=== PATIENT | female | born 1935 | race African-American/Black ===

== ENCOUNTER 2018-03-25 09:32 | Outpatient (CLI) | payer MEDICARE, MEDICAID | END 2018-03-25 09:33 | disposition home or self-care (01) | LOC: BICULT 09:32 | PROVIDERS: ATTEND Internal Medicine Nephrology | DX: Z01.818 Encounter for other preprocedural examination (principal) | CPT/HCPCS: 93970; G0365 ==

== ENCOUNTER 2018-05-20 09:54 | Day surgery (SDC) | payer MEDICARE, MEDICAID ==
[2018-05-19 09:40] VITALS: BMI 25.0
[2018-05-20] MEDS ORDERED: CEFAZOLIN/Water 2 GM/20 ML SYRINGE ONE (10:20)
[2018-05-20 10:38] LABS: #Eosinphils 0.1 thou/uL (0.0-0.7); #Lymphocytes 1.4 thou/uL (1.20-3.40); #Monocytes 0.7 thou/uL (0.11-0.59); #Neutrophils 4.1 thou/uL (1.40-6.50); %Basophils 0.4 % (0.0-1.0); %Eosinophils 1.9 % (0.0-10.0); %Lymphocytes 22.6 % (21.0-51.0); %Monocytes 10.8 % (0.0-10.0); %Neutrophils 64.2 % (42.0-75.0); Mean Corpuscular HGB CONC 31.4 g/dL (32.0-36.0); Mean Corpuscular Hemoglobin 30.1 pg (27.0-31.0); Mean Corpuscular Volume 95.9 fL (78.0-98.0); Mean Platelet Volume 8.2 fL (7.4-10.4); Platelet Count 178 thou/uL (130-400); RBC Distribution Width 15.5 % (11.5-14.5); Red Blood Cell (RBC) Count 3.98 mill/uL (4.20-5.40); White Blood Cell (WBC) Count 6.4 thou/uL (4.8-10.8)
[2018-05-20 11:02] LABS: Anion Gap 12 mmol/L (10-20); BUN (Urea Nitrogen) 27 mg/dL (9.8-20.1); Calc. Creatinine Clearance 11 mL/min (70-130); Calcium 9.1 mg/dL (7.8-10.44); Carbon Dioxide 28 mmol/L (23-31); Chloride 100 mmol/L (98-107); Estimated GFR-MDRD 13; Glucose 91 mg/dL (83-110); Potassium 3.6 mmol/L (3.5-5.1); Sodium 136 mmol/L (136-145)
[2018-05-20] MEDS ORDERED: Fentanyl 100 MCG/2 ML VIAL ONE ×2 (11:25→11:54)
[2018-05-20] MEDS ORDERED: Lidocaine 1% (PF) 30 ML VIAL ONE (11:29)
[2018-05-20] MEDS ORDERED: Bupivacaine/Epinephrine 0.25% 30 ML VIAL ONE (11:47)
[2018-05-20] MEDS ORDERED: Lidocaine 2% PF Inj 2 ML VIAL ONE (11:47)
[2018-05-20] MEDS ORDERED: Ioversol 68 % 50 ML VIAL ONE (11:47)
[2018-05-20] MEDS ORDERED: Protamine Sulfate 50 MG/5 ML VIAL ONE (11:47)
[2018-05-20] MEDS ORDERED: Heparin 5,000 UNITS/ML VIAL ONE (11:47)
[2018-05-20] MEDS ORDERED: Heparin 10,000 UNITS/1 ML VIAL ONE (11:47)
[2018-05-20] MEDS ORDERED: Bupivacaine HCl 0.5%/Epinephrine 1:200,000/PF 30 ml Vial ONE (12:54)
[2018-05-20] MEDS ORDERED: PROPOFOL 200 MG/20 ML VIAL ONE (14:23)
[2018-05-20] MEDS ORDERED: Dexamethasone 20 MG/5 ML VIAL ONE (14:23)
[2018-05-20] MEDS ORDERED: Heparin 10,000 UNITS/ 10 ML VIAL ONE ×2 (14:23→14:54)
[2018-05-20] MEDS ORDERED: Ondansetron HCl/PF 4 MG/2 ML Vial ONE (14:23)
--- NOTE | 2018-05-27 18:38 | PDOC.OP ---
Operative Note - Operative Note Operative Note: PROCEDURE: Right Karen AV fistula SURGEON: Ernestina Romero M.D. DATE OF PROCEDURE: 05/20/28 PREOPERATIVE DIAGNOSIS: Renal failure POSTOPERATIVE DIAGNOSIS: Renal failure HISTORY: Patient with end-stage renal failure on dialysis. Her left upper arm AV fistula has failed to develop so a right AV fistula was recommended. PROCEDURE IN DETAIL: After informed consent was obtained and appropriate preoperative antibiotics administered, the patient was taken to the operating room and placed in the supine position and monitored anesthesia care was administered. A preoperative block had been performed by Anesthesia and the adequacy of block was confirmed. The arm was prepped and draped in a standard sterile fashion and an incision made between the palpable cephalic vein and radial artery. Dissection was carried out to the cephalic vein, which appeared to be of adequate quality and caliber to support a fistula. This was dissected free circumferentially, ligated, and divided distally, and spatulated with Nesbitt scissors. This was serially interrogated with cardiac dilators and easily accepted up to a 3.5 mm cardiac dilator. This was flushed with heparinized saline and clamped with a bulldog clamp. The radial artery was then dissected free and found to be of adequate quality and caliber to support a fistula. Heparin was administered systemically and allowed to circulate for 3 minutes following which the radial artery was clamped proximally and distally. An anterior arteriotomy was created with an 11 blade scalpel and extended with Nesbitt scissors. An end-to-side anastomosis created with a running 6-0 Prolene suture with excellent technical result. Prior to tying down the anastomosis, the inflow was released to flush the anastomosis. Flow was established first through the fistula and then through the distal radial artery. Hemostasis at the site was confirmed, and an excellent thrill was felt in the cephalic vein outflow and an excellent bruit was heard with Doppler as well up to the proximal forearm. Hemostasis at the operative site was again confirmed. The incision was closed with a running 3-0 subcutaneous and running 4 -0 subcuticular Monocryl sutures. Dermabond dressings were placed and the patient was taken to the recovery room in good condition. Estimated blood loss was minimal. There were no complications. There were no specimens.
== END 2018-05-20 15:45 | disposition home or self-care (01) ==
LOC: SDC 09:54
PROVIDERS: ATTEND Surgery
PROC: 031B0ZF Bypass Right Radial Artery to Lower Arm Vein, Open Approach (ICD-10-PCS; principal; 2018-05-20)
DX: T82.898A Other specified complication of vascular prosthetic devices, implants and grafts, initial encounter (principal); I12.0 Hypertensive chronic kidney disease with stage 5 chronic kidney disease or end stage renal disease; E11.22 Type 2 diabetes mellitus with diabetic chronic kidney disease; N18.6 End stage renal disease; J45.909 Unspecified asthma, uncomplicated; Z79.82 Long term (current) use of aspirin; Z79.899 Other long term (current) drug therapy; Z99.2 Dependence on renal dialysis; Z98.890 Other specified postprocedural states
CPT/HCPCS: 80048; 85025; J0670; J1100; J1644; J2001; J2405; J2704; J2720; J3010; Q9967

== ENCOUNTER 2018-05-28 06:36 | Day surgery (SDC) | payer MEDICARE, MEDICAID ==
[2018-05-27 13:32] VITALS: BMI 25.0
[2018-05-28 15:17] VITALS: BP 186/74; TEMP 98.4
--- NOTE | 2018-05-28 16:04 | SPC ---
PROCEDURE RIGHT UPPER EXTREMITY DIALYSIS FISTULOGRAM: Two sonographic-guided vascular chesses. HISTORY: For function of new right upper extremity dialysis fistula. FLUORO TIME: 6.6 minutes. FINDINGS: After explaining the procedure and answering all questions, the right upper extremity was prepped and draped in the usual sterile fashion. Preprocedure sonographic evaluation shows the cephalic and bas ilic veins of the forearm to be very small. A noncompressible structure extending from the arterial anastomosis at the right wrist extends towards the cephalic outflow of the forearm. Sterile technique, buffered local anesthesia, sonographic guidance, and a 22-gauge needle were used t o carefully access the peripheral portion of the right forearm cephalic dialysis fistula. A 4 Romansh was placed for imaging, showing a very small antecubital vein with occasional collaterals. Dominant venous outflow is via a small basilic vein of the upper arm which his widely patent. Superior vena cava is patent. Attempt at reflux angiogram shows the cephalic vein to the level of distal radial sh aft, with contrast then extending through collaterals. Arterial inflow was not visualized. A second vascular access was obtained with sonographic guidance near the level of the antecubital fos opal within the antecubital vein, directed towards the arterial inflow. Great care was taken to caref ully advance a 0.035 Guidewire to the more peripheral cephalic vein in an attempt to visualize the ar terial inflow. A 4 Romansh catheter was carefully placed for imaging. Multiple venous branches were explored. The entirety of the cephalic vein was visualized. No arterial inflow was ever seen. The surgical arteriovenous anastomosis was not well visualized. The catheters an sheaths were removed and hemostasis obtained using direct pressure. The patient bree erated the procedure well and was eventually dismissed in good condition. IMPRESSION: 1. Very small caliber of venous structures throughout the right arm. No significant arterial inflow of the fistula at the right wrist was seen. The surgical anastomosis was unable to be found during catheterization and angiography. Please consider surgical consultation. POS: SUNIL
== END 2018-05-28 10:00 | disposition home or self-care (01) ==
LOC: SPEC 06:36
PROVIDERS: ATTEND Internal Medicine Nephrology
PROC: B51W1ZZ Fluoroscopy of Dialysis Shunt/Fistula using Low Osmolar Contrast (ICD-10-PCS; principal; 2018-05-28)
DX: T82.9XXA Unspecified complication of cardiac and vascular prosthetic device, implant and graft, initial encounter (principal); I12.0 Hypertensive chronic kidney disease with stage 5 chronic kidney disease or end stage renal disease; E11.22 Type 2 diabetes mellitus with diabetic chronic kidney disease; N18.6 End stage renal disease; K21.9 Gastro-esophageal reflux disease without esophagitis; Z99.2 Dependence on renal dialysis; Z79.82 Long term (current) use of aspirin; Z79.899 Other long term (current) drug therapy
CPT/HCPCS: 36901; C1769; C1887

== ENCOUNTER 2018-12-31 06:27 | Day surgery (SDC) | payer MEDICARE, MEDICAID ==
[2018-12-30 12:28] VITALS: BMI 25.0
[2018-12-31 07:03] LABS: #Eosinphils 0.2 thou/uL (0.0-0.7); #Lymphocytes 1.4 thou/uL (1.20-3.40); #Monocytes 0.7 thou/uL (0.11-0.59); #Neutrophils 4.9 thou/uL (1.40-6.50); %Basophils 0.4 % (0.0-1.0); %Eosinophils 2.3 % (0.0-10.0); %Lymphocytes 19.3 % (21.0-51.0); %Monocytes 10.2 % (0.0-10.0); %Neutrophils 67.9 % (42.0-75.0); Hemoglobin 10.9 g/dL (12.0-16.0); Mean Corpuscular HGB CONC 32.6 g/dL (32.0-36.0); Mean Corpuscular Hemoglobin 30.6 pg (27.0-31.0); Mean Corpuscular Volume 93.6 fL (78.0-98.0); Mean Platelet Volume 8.8 fL (7.4-10.4); Platelet Count 201 thou/uL (130-400); RBC Distribution Width 15.3 % (11.5-14.5); Red Blood Cell (RBC) Count 3.56 mill/uL (4.20-5.40); White Blood Cell (WBC) Count 7.2 thou/uL (4.8-10.8)
[2018-12-31] MEDS ORDERED: Fentanyl 100 MCG/2 ML VIAL ONE (07:15)
[2018-12-31] MEDS ORDERED: Propofol 500 MG/50 ML VIAL ONE (07:20)
[2018-12-31 07:23] LABS: Anion Gap 11 mmol/L (10-20); BUN (Urea Nitrogen) 24 mg/dL (9.8-20.1); Calc. Creatinine Clearance 13 mL/min (70-130); Calcium 10.3 mg/dL (7.8-10.44); Carbon Dioxide 30 mmol/L (23-31); Chloride 97 mmol/L (98-107); Estimated GFR-MDRD 17; Glucose 95 mg/dL (83-110); Potassium 3.7 mmol/L (3.5-5.1); Sodium 134 mmol/L (136-145)
[2018-12-31] MEDS ORDERED: Protamine Sulfate 50 MG/5 ML VIAL ONE (07:28)
[2018-12-31] MEDS ORDERED: Bupivacaine/Epinephrine 0.25% 30 ML VIAL ONE (07:28)
[2018-12-31] MEDS ORDERED: Lidocaine 2% PF 5 ML VIAL ONE (07:28)
[2018-12-31] MEDS ORDERED: Heparin 5,000 UNITS/ML VIAL ONE (07:28)
[2018-12-31] MEDS ORDERED: Piperacillin/Tazobactam 3.375 GM VIAL ONE (09:03)
[2018-12-31] MEDS ORDERED: Bupivacaine HCl 0.5%/Epinephrine 1:200,000/PF 30 ml Vial ONE (10:11)
[2018-12-31] MEDS ORDERED: Lidocaine 1% PF 5 ML VIAL ONE (10:51)
[2018-12-31] MEDS ORDERED: PROPOFOL 200 MG/20 ML VIAL ONE (10:51)
[2018-12-31] MEDS ORDERED: Heparin 10,000 UNITS/ 10 ML VIAL ONE (11:09)
--- NOTE | 2019-01-01 10:00 | EKG ---
Test Reason : PREOP Blood Pressure : / mmHG Vent. Rate : 068 BPM Atrial Rate : 068 BPM P-R Int : 222 ms QRS Dur : 070 ms QT Int : 392 ms P-R-T Axes : 083 026 035 degrees QTc Int : 416 ms Sinus rhythm with 1st degree A-V block with Premature atrial complexes Otherwise normal ECG When compared with ECG of 31-JAN-2015 07:06, No significant change was found Confirmed by DR. Gale GAGE ([id number]) on 01/01/2019 10:00:08 AM Referred By: YAIMA Confirmed By:DR. Gale GAGE
--- NOTE | 2019-01-03 15:20 | OP ---
DATE OF PROCEDURE: 12/31/2018 PROCEDURE PERFORMED: Right radiocephalic AV fistula of the upper arm. PREOPERATIVE DIAGNOSIS: End-stage renal failure. POSTOPERATIVE DIAGNOSIS: End-stage renal failure. INDICATIONS FOR PROCEDURE: Ms. Lindo is an 83-year-old woman with end-stage renal failure, who needs permanent access. She has a tunneled catheter in place and a failed Karen fistula on the right. She has exhausted her access options on the left. Recommendation was made to proceed to the operating room for a right upper arm AV fistula versus graft. DESCRIPTION OF PROCEDURE: After informed consent was obtained and appropriate preoperative antibiotics were administered, the patient was taken to the operating room, where she was placed in supine position and monitored anesthesia care was administered. A block had been placed preoperatively and adequacy of the block was confirmed. The palpable forearm cephalic vein was marked on the skin as was the palpable brachial pulse. An incision was made over the forearm cephalic vein, which was dissected free circumferentially, this appeared to be of good caliber and quality and was ligated and divided distally leaving enough length to reach over to the brachial artery. The vein was spatulated and interrogated stenosis making it unable and unsuitable for use for fistula. Therefore, this was ligated and attention was turned to the antecubital area. Dissection was carried down toward the palpable brachial pulse, at which point, antecubital vein complex was identified. This appeared to have dual basilic and cephalic outflow and a large high school math teacher heading down towards the palpable pulse. The perforating vein was dissected free and ligated distally and divided. This was spatulated up to a 3.5 mm dilator. This did have dual outflow, but primarily cephalic outflow. . Job ID: [id number]
== END 2018-12-31 11:35 | disposition home or self-care (01) ==
LOC: SDC 06:27
PROVIDERS: ATTEND Surgery
PROC: 03170ZD Bypass Right Brachial Artery to Upper Arm Vein, Open Approach (ICD-10-PCS; principal; 2018-12-31)
DX: I12.0 Hypertensive chronic kidney disease with stage 5 chronic kidney disease or end stage renal disease (principal); E11.22 Type 2 diabetes mellitus with diabetic chronic kidney disease; N18.6 End stage renal disease; E78.5 Hyperlipidemia, unspecified; M19.90 Unspecified osteoarthritis, unspecified site; F17.290 Nicotine dependence, other tobacco product, uncomplicated; Z79.82 Long term (current) use of aspirin; Z79.899 Other long term (current) drug therapy; Z99.2 Dependence on renal dialysis
CPT/HCPCS: 80048; 85025; 93005; 93010; J0670; J0690; J1644; J2001; J2543; J2704; J2720; J3010

== ENCOUNTER 2019-04-27 08:54 | Day surgery (SDC) | payer MEDICARE, MEDICAID ==
[2019-04-27] MEDS ORDERED: Bupivacaine/Epinephrine 0.25% 30 ML VIAL ONE (09:38)
[2019-04-27] MEDS ORDERED: Lidocaine 2% PF 5 ML VIAL ONE (09:38)
[2019-04-27] MEDS ORDERED: Protamine Sulfate 50 MG/5 ML VIAL ONE (09:38)
[2019-04-27] MEDS ORDERED: Heparin 5,000 UNITS/ML VIAL ONE (09:38)
[2019-04-27] MEDS ORDERED: Midazolam HCl 2 mg/2 ml Vial ONE (10:02)
[2019-04-27] MEDS ORDERED: Fentanyl 100 MCG/2 ML VIAL ONE (10:02)
[2019-04-27 10:12] LABS: #Basophils 0.1 thou/uL (0.0-0.2); #Eosinphils 0.1 thou/uL (0.0-0.7); #Lymphocytes 1.3 thou/uL (1.20-3.40); #Monocytes 0.7 thou/uL (0.11-0.59); #Neutrophils 3.5 thou/uL (1.40-6.50); %Basophils 1.1 % (0.0-1.0); %Eosinophils 1.5 % (0.0-10.0); %Lymphocytes 22.6 % (21.0-51.0); %Monocytes 12.9 % (0.0-10.0); %Neutrophils 61.8 % (42.0-75.0); Hemoglobin 11.6 g/dL (12.0-16.0); Mean Corpuscular HGB CONC 32.7 g/dL (32.0-36.0); Mean Corpuscular Hemoglobin 31.7 pg (27.0-31.0); Mean Corpuscular Volume 96.9 fL (78.0-98.0); Mean Platelet Volume 9.2 fL (7.4-10.4); Platelet Count 135 thou/uL (130-400); RBC Distribution Width 14.8 % (11.5-14.5); Red Blood Cell (RBC) Count 3.66 mill/uL (4.20-5.40); White Blood Cell (WBC) Count 5.6 thou/uL (4.8-10.8)
[2019-04-27 10:35] LABS: Anion Gap 14 mmol/L (10-20); BUN (Urea Nitrogen) 28 mg/dL (9.8-20.1); Calc. Creatinine Clearance 0 mL/min (70-130); Carbon Dioxide 27 mmol/L (23-31); Chloride 97 mmol/L (98-107); Estimated GFR-MDRD 15; Glucose 100 mg/dL (83-110); Potassium 3.1 mmol/L (3.5-5.1); Sodium 135 mmol/L (136-145)
[2019-04-27] MEDS ORDERED: Bupivacaine HCl 0.5%/Epinephrine 1:200,000/PF 30 ml Vial ONE (12:06)
[2019-04-27] MEDS ORDERED: PROPOFOL 40 ML ONE (12:26)
[2019-04-27] MEDS ORDERED: Heparin 10,000 UNITS/ 10 ML VIAL ONE ×2 (12:52→14:44)
[2019-04-27] MEDS ORDERED: PROPOFOL 200 MG/20 ML VIAL ONE (12:52)
--- NOTE | 2019-04-30 10:53 | PDOC.OP ---
Operative Note - Operative Note Operative Note: DATE OF PROCEDURE: 04/27/2019 PROCEDURE: Right basilic vein transposition fistula. SURGEON: Ernestina Romero M.D. PREOPERATIVE DIAGNOSIS: End-stage renal failure. POSTOPERATIVE DIAGNOSIS: End-stage renal failure. HISTORY: Patient is a 84 year old woman with end-stage renal failure.She has a right upper arm basilic fistula which requires transposition to be accessible. DESCRIPTION OF PROCEDURE: After informed consent was obtained and appropriate neuromuscular blockade was administered, the patient was taken to the operating room and placed in supine position. The arm was prepped and draped in a standard sterile fashion and adequacy of block was confirmed. The distal basilic vein was dissected out to its confluence with the upper arm cephalic vein. The cephalic vein was found to be of inadequate caliber to support transposition. The basilic vein was then dissected free to the level of its confluence with the axillary vein, ligating side branches as they were encountered. The vein was marked for orientation, clamped and divided obliquely above the level of the confluence with the cephalic vein. The basilic vein was compressed at the level of the axilla and heparinized saline was instilled, distending the vein. The vein was checked for leaks and none were seen. The vein was then flushed with heparinized saline and a bulldog clamp placed at the level of the axilla. A 12 mm tunneler was obtained and brought up from the antecubital to the axillary area. The 12 mm tip was removed and a 6 mm tip placed and the basilic vein was secured to this. The basilic vein was drawn down through the subcutaneous tunnel being careful not to twist the vein. This was found easily to reach to the proximal basilic vein. Heparin was then administered systemically and allowed to circulate for 3 minutes. The proximal basilic vein was spatulated to create a wide anastomosis. An end-to-side anastomosis was created with a running 6-0 Prolene suture with excellent technical result. Prior to completing the anastomosis, the inflow was released, flushing the anastomosis. The anastomosis was then completed, all clamps were removed and hemostasis verified. There was an excellent thrill through the basilic fistula which was readily palpable beneath the skin. This was immediately medial to the cephalic vein which also had a palpable thrill but is significantly smaller in caliber. The decision was made to leave the cephalic vein in position, as a possible alternative access sites if the basilic vein thromboses. The inner arm wound was then irrigated and hemostasis obtained with Bovie electrocautery. The subcutaneous tissues were closed in two layers with 3-0 Monocryl suture following which the skin incision was closed with skin kristie. A surface wound VAC dressing was placed and the arm was wrapped with an Natalio wrap. The patient was taken to recovery in good condition. Estimated blood loss was minimal. There were no complications. There were no specimens.
== END 2019-04-27 15:15 | disposition home or self-care (01) ==
LOC: SDC 08:54
PROVIDERS: ATTEND Surgery
PROC: 05SB0ZZ Reposition Right Basilic Vein, Open Approach (ICD-10-PCS; principal; 2019-04-27)
DX: I12.0 Hypertensive chronic kidney disease with stage 5 chronic kidney disease or end stage renal disease (principal); E11.22 Type 2 diabetes mellitus with diabetic chronic kidney disease; N18.6 End stage renal disease; F17.290 Nicotine dependence, other tobacco product, uncomplicated; M16.10 Unilateral primary osteoarthritis, unspecified hip; M47.819 Spondylosis without myelopathy or radiculopathy, site unspecified; E78.5 Hyperlipidemia, unspecified; Z79.899 Other long term (current) drug therapy; Z99.2 Dependence on renal dialysis
CPT/HCPCS: 80048; 85025; J0670; J0690; J1644; J2001; J2250; J2704; J2720; J3010

== ENCOUNTER → 2021-01-17 | Day surgery (SDC) | payer MEDICAID ==
[2021-01-11 11:00] VITALS: BMI 26.0
[2021-01-17 08:18] VITALS: BP 153/70; TEMP 98.6
== END ==
LOC: SPEC 07:27
PROVIDERS: ATTEND Surgery
PROC: B51W1ZZ Fluoroscopy of Dialysis Shunt/Fistula using Low Osmolar Contrast (ICD-10-PCS; principal; 2021-01-17)
DX: T82.49XA Other complication of vascular dialysis catheter, initial encounter (principal); I12.0 Hypertensive chronic kidney disease with stage 5 chronic kidney disease or end stage renal disease; E11.22 Type 2 diabetes mellitus with diabetic chronic kidney disease; N18.6 End stage renal disease; D63.1 Anemia in chronic kidney disease; I48.91 Unspecified atrial fibrillation; K21.9 Gastro-esophageal reflux disease without esophagitis; M35.3 Polymyalgia rheumatica; M10.9 Gout, unspecified; Z79.01 Long term (current) use of anticoagulants; Z79.82 Long term (current) use of aspirin; Z79.899 Other long term (current) drug therapy; Z99.2 Dependence on renal dialysis
CPT/HCPCS: 36901; 76937

== ENCOUNTER 2021-04-03 14:44 | Emergency (ER) | payer MEDICARE, MEDICAID ==
[~2021-04-03 14:44] MED LIST: Heparin 10,000 UNITS/ 10 ML VIAL ONE
[2021-04-03 15:30] LABS: Hemoglobin 5.9 g/dL (12.0-16.0); Mean Corpuscular HGB CONC 32.9 g/dL (32.0-36.0); Mean Corpuscular Hemoglobin 32.6 pg (27.0-31.0); Mean Corpuscular Volume 99.2 fL (78.0-98.0); Mean Platelet Volume 9.2 fL (7.4-10.4); Platelet Count 172 thou/uL (130-400); RBC Distribution Width 14.8 % (11.5-14.5); White Blood Cell (WBC) Count 14.7 thou/uL (4.8-10.8)
[2021-04-03 15:56] LABS: ALT (SGPT) 12 U/L (8-55); AST (SGOT) 25 U/L (5-34); Albumin 2.9 g/dL (3.4-4.8); Alkaline Phosphatase 60 U/L (40-110); Anion Gap 18 mmol/L (10-20); BUN (Urea Nitrogen) 18 mg/dL (9.8-20.1); Band 2 % (5-11); Bilirubin, Total 0.8 mg/dL (0.2-1.2); Calc. Creatinine Clearance 0 mL/min (70-130); Calcium 8.2 mg/dL (7.8-10.44); Carbon Dioxide 22 mmol/L (23-31); Chloride 99 mmol/L (98-107); Globulin 3.9 g/dL (2.4-3.5); Glucose 84 mg/dL (83-110); Hypochromia SLIGHT = 6-15 cells (100X) (0-5/hpf); Lymphocytes 4 % (21-51); MDiff Complete? YES; Monocytes 7 % (0-10); Neutrophil 87 % (42-75); Platelet Clumps MODERATE; Platelet Morphology Comment Appears Adequate; Potassium 3.9 mmol/L (3.5-5.1); Protein, Total 6.8 g/dL (5.8-8.1); Sodium 135 mmol/L (136-145)
[2021-04-03 16:11] LABS: CKMB 1.6 ng/mL (0-6.6)
[2021-04-04 00:50] LABS: HBSAg Index 0.21 S/CO (0-0.99); Hep B Surf Ag Non-Reactive S/CO (NonReactive)
== END 2021-04-04 00:58 ==
LOC: ERS 14:44
DX: N18.6 End stage renal disease (principal); D63.1 Anemia in chronic kidney disease; Z79.82 Long term (current) use of aspirin; Z79.899 Other long term (current) drug therapy; Z79.01 Long term (current) use of anticoagulants
CPT/HCPCS: 36430; 80053; 82553; 84484; 85025; 86850; 86900; 86901; 86920; 87340; 93005; P9016; 36415; 90935; G0257; J1644